=== PATIENT | male | born 1935 | race Caucasian/White ===

== ENCOUNTER → 2020-07-11 | Outpatient (CLI) | payer OTHER ==
[~2020-07-11] MED LIST: ALENDRONATE SOD35 MG PO; ASPIRIN EC81 M1 PO; COZAAR 25 MG TA25 M1 PO; DULERA 200 MCG/13 GM INH; IRON18 M1 PO; MULTI VITAMIN1 EACH PO; PROAIR HFA8.5 GM INH; SPIRIVA RESPIMAT4 GM INH; VITAMIN D3100 MCG PO; ZOCOR 20 MG TAB20 M1 PO
== END ==
LOC: LAB 13:40
PROVIDERS: ATTEND Surgery
DX: Z01.812 Encounter for preprocedural laboratory examination (principal); Z20.822 Contact with and (suspected) exposure to COVID-19

== ENCOUNTER 2020-07-16 09:38 | Day surgery (SDC) | payer OTHER ==
[~2020-07-16] VITALS: Ht 180.3 cm; Wt 78.9 kg
[2020-07-16 10:14] VITALS: BP 167/89
[2020-07-16] MEDS ORDERED: HYDROCODON-ACE1 EAC7 PO (10:46)
[2020-07-16 15:17] VITALS: BP 167/89
--- NOTE | 2020-07-17 09:03 | O ---
[facility] [place] [address] OPERATIVE REPORT Name: CARLOTTA RODRIGUEZ Room #: DEP [facility].#: [id number] Admission: 07/16/20 Attend Phys: Miles Melendez MD Discharge: 07/16/20 Date of : 39 Report #: [id number] THIS REPORT FOR: cc: Larry Carrasco MD, Elliott L. MD Franey,Miles Hurtado MD ~ DATE OF SERVICE: 07/16/2020 PATIENT OF: Dr. Larry Carrasco and Dr. Miles Melendez. PREOPERATIVE DIAGNOSIS: Recurrent right inguinal hernia. POSTOPERATIVE DIAGNOSIS: Recurrent right inguinal hernia. PROCEDURE: Repair of a recurrent right inguinal hernia with Prolene hernia system mesh. SURGEON: Miles Melendez MD. ANESTHESIA: Local IV sedation. DESCRIPTION OF PROCEDURE: The patient was brought to the operating room and placed on the operative table in the supine position. Sequential compression devices were in place for DVT prophylaxis. There was no indication for preoperative antibiotics. The patient underwent IV sedation and was prepped and draped in a sterile fashion. Skin and subcutaneous tissue were then infiltrated with 0.5% Marcaine and 1% Xylocaine with epinephrine. Right inguinal skin incision was then performed through the previous incision scar using #10 scalpel blade. Hemostasis was obtained using electrocautery. Dissection was carried down through the subcutaneous tissue and through Carlos's fascia using the electrocautery. Upon opening the Carlos's fascia, clearly there was a palpable indirect inguinal hernia defect with a hernia sac. This was very lateral and the cord appeared to be coming up through the external oblique fascia. This appeared to be an exteriorization of the cord from his previous inguinal hernia repair. The cord was dissected free, elevated up and held into place with a [place] drain. Dissection was carried around the opening in the external oblique fascia around the cord and was opened further laterally and then medially. There was an obvious indirect inguinal hernia sac with a very widened internal ring. After freeing up the cord and the hernia sac, the hernia sac was then reduced back into the preperitoneal space. I could palpate and clearly identify the femoral vessels and nerve. An extended Prolene hernia system mesh was then inserted through the internal ring and the underlay patch was then deployed into the preperitoneal space. This covered the femoral canal as well as the area underneath the floor of the canal and laterally. I then deployed the overlay patch into the canal and extended out medially and laterally. It [facility] [address] [place] [address] OPERATIVE REPORT Name: CARLOTTA RODRIGUEZ [id number] Admission: 07/16/20 Attend Phys: Miles Melendez MD Discharge: 07/16/20 Date of : 39 Report #: [id number] was secured medially at the pubic tubercle with a 2-0 Prolene and 2-0 Vicryl suture. It was also secured to the inguinal ligament with a simple interrupted 2-0 Prolene sutures. The connector was secured at the internal ring with a simple interrupted 2-0 Vicryl sutures as well as superiorly with the simple interrupted 2-0 Vicryl sutures. The mesh was split and wrapped around the cord and secured to the inguinal ligament using a simple interrupted 2-0 Prolene suture. I did place one stitch lateral to the internal ring through the mesh and the inguinal ligament. I then returned the ilioinguinal nerve and the cord to the canal and I closed the external oblique fascia over the cord using a running 2-0 Vicryl suture. Carlos's fascia was then reapproximated using 3 simple interrupted 2-0 chromic sutures and the skin then closed with a running 4-0 subcuticular Vicryl stitch. The wound was then dressed with Mastisol, 1/2-inch Steri-Strips cut in half, Telfa, 4 x 4 gauze, sponge and tape. The patient was then taken to the recovery room awake, alert and in good condition. Estimated blood loss was approximately 10 mL and the patient tolerated procedure well. All sponge, lap and instrument counts correct x 2. <ELECTRONICALLY SIGNED> By: Miles Melendez MD 07/17/20 [id number] Miles Melendez MD /nt
== END 2020-07-16 15:48 | disposition home or self-care (01) ==
LOC: TBA 09:38 → OR 09:38
PROVIDERS: ATTEND Surgery
DX: K40.91 Unilateral inguinal hernia, without obstruction or gangrene, recurrent (principal); I10 Essential (primary) hypertension; E78.5 Hyperlipidemia, unspecified; J43.9 Emphysema, unspecified; Z98.890 Other specified postprocedural states; Z79.899 Other long term (current) drug therapy; Z87.891 Personal history of nicotine dependence; Z85.72 Personal history of non-Hodgkin lymphomas; Z96.641 Presence of right artificial hip joint; Z87.442 Personal history of urinary calculi; Z98.41 Cataract extraction status, right eye; Z98.42 Cataract extraction status, left eye; Z96.1 Presence of intraocular lens
CPT/HCPCS: 50010; 50101; 50386; 50417; 56524; 56525; 56526; 56528; 58646; 62110; 62850; 70005